=== PATIENT | female | born 1995 | race Two or more races ===

== ENCOUNTER → 2018-12-04 | Outpatient (CLI) | payer OTHER ==
[~2018-12-04] MED LIST: CLARITIN10 MG
== END | disposition home or self-care (01) ==
LOC: SONOGRAMA 10:02 → MAMO-SONO 10:15
DX: Z34.00 Encounter for supervision of normal first pregnancy, unspecified trimester (principal)

== ENCOUNTER 2019-01-03 10:39 | Inpatient (IN) | payer OTHER ==
[~2019-01-03] VITALS: Ht 160 cm; Wt 79.8 kg
[2019-01-24] MEDS ORDERED: PRENATAL TABLE1 EAC1 PO (10:12)
== END 2019-01-26 11:31 | disposition home or self-care (01) | DRG 807 ==
LOC: OB/GYN 10:39 → LDR 01-24 09:15 → SURG-SUITE 01-24 09:15
PROVIDERS: ADMIT Obstetrics & Gynecology
PROC: 10E0XZZ Delivery of Products of Conception, External Approach (ICD-10-PCS; principal; 2019-01-24)
PROC: 4A0HXFZ Measurement of Products of Conception, Cardiac Rhythm, External Approach (ICD-10-PCS; 2019-01-24)
DX: O80 Encounter for full-term uncomplicated delivery (principal); Z37.0 Single live birth; Z3A.40 40 weeks gestation of pregnancy